=== PATIENT | female | born 1945 | race Caucasian/White ===

== ENCOUNTER 2017-06-03 08:55 | Day surgery (SDC) | payer MEDICARE, OTHER ==
[~2017-06-03 08:55] MED LIST: ESOM40CA PO; LISI-613 PO; SIMV20TA6 PO
[2017-06-03 09:41] VITALS: BP 110/64
[2017-06-03] MEDS ORDERED: METO50TA9 PO (09:42)
[2017-06-03] MEDS ORDERED: PANT40TA25 PO (09:42)
[2017-06-03] MEDS ORDERED: CHOL200026 PO (09:42)
[2017-06-03] MEDS ORDERED: CYCL10TA7 PO (09:48)
[2017-06-03] MEDS ORDERED: ACET-2247 PO (09:48)
[2017-06-03] MEDS ORDERED: DOCU-116 PO (09:48)
[2017-06-03 09:50] VITALS: BP 108/64
[2017-06-03] MEDS ORDERED: ACID1TAB8 PO (09:52)
[2017-06-03] MEDS ORDERED: SODIUM CHLORIDE 0.9% 1000ML 1,000 ML IV ONE (09:53)
[2017-06-03] MEDS ORDERED: FLUT15.88 NS (10:12)
[2017-06-03] MEDS ORDERED: MED PASS (10:12)
[2017-06-03] MEDS ORDERED: DUONEB IH (10:12)
[2017-06-03] MEDS ORDERED: FERR500P12 MC (10:12)
[2017-06-03] MEDS ORDERED: DEXT15CA20 PO (10:12)
[2017-06-03] MEDS ORDERED: D-ME118S47 PO (10:12)
[2017-06-03] MEDS ORDERED: MAGN200T4 PO (10:12)
[2017-06-03] MEDS ORDERED: CYCL10 PO (10:12)
[2017-06-03] MEDS ORDERED: AMIO200 PO (10:12)
== END 2017-06-03 10:45 | disposition home or self-care (01) ==
LOC: ENDO 08:55 → DAH 08:55 → ENDO 10:45
PROVIDERS: ATTEND Internal Medicine Gastroenterology
DX: K29.50 Unspecified chronic gastritis without bleeding (principal); K21.0 Gastro-esophageal reflux disease with esophagitis; K92.0 Hematemesis; K63.89 Other specified diseases of intestine; K25.9 Gastric ulcer, unspecified as acute or chronic, without hemorrhage or perforation; J44.9 Chronic obstructive pulmonary disease, unspecified; I10 Essential (primary) hypertension; F32.89 Other specified depressive episodes; I25.10 Atherosclerotic heart disease of native coronary artery without angina pectoris; I73.89 Other specified peripheral vascular diseases; E78.4 Other hyperlipidemia; D64.89 Other specified anemias; Z79.899 Other long term (current) drug therapy; I48.0 Paroxysmal atrial fibrillation; Z98.890 Other specified postprocedural states; Z93.1 Gastrostomy status
CPT/HCPCS: 43239; 88305; 88312; 93005; A4606; J7030